=== PATIENT | male | born 1980 | race Caucasian/White ===

== ENCOUNTER 2024-01-31 03:19 | Emergency (ER) | payer SELFPAY ==
[~2024-01-31] VITALS: Ht 175.3 cm; Wt 96.0 kg
[2024-01-31 03:28] VITALS: O2SAT 98
[2024-01-31] MEDS: ACETAMINOPHEN 500MG TABLET PO ONE (03:45)
[2024-01-31] MEDS: FLUORESCEIN SODIUM 1MG/STRIP RIGHTEYE ONE (05:15)
[2024-01-31] MEDS ORDERED: DEXT15DR5 RIGHTEYE (05:26)
[2024-01-31] MEDS ORDERED: IBUP-2029 MT (05:26)
[2024-01-31 05:40] VITALS: BP 127/88; PULSE 69; RESP 17; TEMP 36.72516; O2SAT 100
[2024-01-31] MEDS: TETANUS, DIPHTHERIA, PERTUSSIS VAC/PF 0.5ML (>10YR OLD) IM ONE (05:46)
== END 2024-01-31 06:00 | disposition home or self-care (01) ==
LOC: ER 03:19
DX: S02.831A Fracture of medial orbital wall, right side, initial encounter for closed fracture (principal); Y08.89XA Assault by other specified means, initial encounter; Y93.89 Activity, other specified; Y92.89 Other specified places as the place of occurrence of the external cause; Y99.8 Other external cause status
CPT/HCPCS: 70450; 70486; 72125; 90715; 90471; 99285; Z7610